=== PATIENT | female | born 1995 ===

== ENCOUNTER 2016-11-02 17:01 | Emergency (ER) | payer OTHER ==
[2016-11-02 17:16] VITALS: BP 116/61
[2016-11-02 21:36] LABS: EBV Response YES
[2016-11-02 21:54] LABS: ALT 12 U/L (7-52); AST 19 U/L (13-39); Albumin 3.9 g/dL (3.2-5.2); Alkaline Phosphatase 43 U/L (34-104); Anion Gap 5 mmol/L (2-11); BUN/Creatinine Ratio 12.7 (8-20); Blood Urea Nitrogen 8 mg/dL (6-24); C Reactive Protein 12.67 mg/L (< 5.00); CO2 Carbon Dioxide 25 mmol/L (22-32); Calcium 8.2 mg/dL (8.6-10.3); Chloride 107 mmol/L (101-111); EGFR African American 150.6 (>60); EGFR Non-African American 117.1 (>60); Glucose 116 mg/dL (70-100); Potassium 3.5 mmol/L (3.5-5.0); Sodium 137 mmol/L (133-145); Total Protein 6.9 g/dL (6.4-8.9)
[2016-11-02 22:22] LABS: Mono Internal Control QC Line Present
[2016-11-02 22:25] LABS: Hematocrit 40 % (35-47); Hemoglobin 14.1 g/dl (12.0-16.0); Mean Corpuscular HGB Conc 35 g/dl (31-36); Mean Corpuscular Hemoglobin 32 pg (27-31); Mean Corpuscular Volume 91 fL (80-97); Mean Platelet Volume 9 um3 (7.4-10.4); Red Blood Count 4.45 10^6/ul (4.0-5.4); Red Cell Distribution Width 12 % (10.5-15); White Blood Count 3.6 10^3/ul (3.5-10.8)
--- NOTE | 2016-11-02 22:50 | ED ---
Guevara Arguello Alfonso, scribed for Kylah Bradley MD on 11/02/16 at 1945 . Skin Complaint - HPI Summary HPI Summary: This patient is a 21 year old F presenting to [facility] accompanied by a female friend with a chief complaint of a diffuse erythematous rash since 2 days ago. The patient rates the pain 4/10 in severity. Symptoms aggravated by nothing. Symptoms alleviated by nothing. Patient reports joint pain (knee, feet, and hands), weakness, and diarrhea (just two days ago). Patient denies vomiting, fever, chills, and sore throat. She reports recently traveling to [place] and returning 3 days ago. She reports another student she traveled to [place] with has similar symptoms. She lives with roommates and she is a college student. She denies acknowledged tick exposure. LMP October 22. - History of Current Complaint Chief Complaint: EDRashSkinAbscess Time Seen by Provider: 11/02/16 19:34 Stated Complaint: RASH/RED EYES/SORE JOINTS Hx Obtained From: Patient Onset/Duration: Started Days Ago - 2, Still Present Timing: Constant Current Severity: Moderate Pain Intensity: 4 Pain Scale Used: 0-10 Numeric Skin Location: Diffuse Character: Redness Aggravating Symptom(s): Nothing Alleviating Symptom(s): Nothing Associated Signs & Symptoms: Weakness, Rash PMH/Surg Hx/FS Hx/Imm Hx Opthamlomology History: Denies: Hx Legally Blind EENT History: Denies: Hx Deafness Infectious Disease History: No Infectious Disease History: Reports: Traveled Outside the [place] in Last 30 Days - Family History Known Family History: Positive: Unknown - Adopte - Social History Occupation: Student Lives: Dormitory/Roommates Alcohol Use: None Substance Use Type: Reports: None Smoking Status (MU): Never Smoked Tobacco Review of Systems Negative: Fever, Chills Negative: Sore Throat Positive: Diarrhea. Negative: Vomiting Positive: Arthralgia Positive: Rash Positive: Weakness All Other Systems Reviewed And Are Negative: Yes Physical Exam - Summary Physical Exam Summary: General: Well appearing, no pain distress Skin: Warm, Skin Color Reflects Adequate Perfusion, Dry. Diffuse maculopapular rash. Eyes: EOMI, GONZALO ENT: Pharynx normal, TMs normal Neck: Supple, nontender Respiratory: CTA, breath sounds present, no rhonchi, no wheezes, no rales Cardiovascular: RRR, no murmur, no rub, no gallop Abdomen: Soft, nontender, Non-distended, no guarding, no rebound Bowel: Present Musculoskeletal: NGOC, No edema Neuro: Sensory/motor intact, A&Ox3, CN intact 2-12 Psych: Affect/mood appropriate Triage Information Reviewed: Yes Vital Signs On Initial Exam: Initial Vitals Temp Pulse Resp BP Pulse Ox 98.2 F 80 28 116/61 100 11/02/16 17:11 11/02/16 17:11 11/02/16 17:11 11/02/16 17:11 11/02/16 17:11 Vital Signs Reviewed: Yes - Bledsoe Coma Scale Coma Scale Total: 15 Diagnostics - Vital Signs Vital Signs Temp Pulse Resp BP Pulse Ox 11/02/16 17:11 98.2 F 80 28 116/61 100 - Laboratory Lab Results: Lab Results 11/02/16 11/02/16 11/02/16 Range/Units 20:39 21:20 21:20 WBC Cancelled RBC Cancelled Hgb Cancelled Hct Cancelled MCV Cancelled MCH Cancelled MCHC Cancelled RDW Cancelled Plt Count Cancelled MPV Cancelled Neut % (Auto) Cancelled Lymph % (Auto) Cancelled Starr % (Auto) Cancelled Eos % (Auto) Cancelled Baso % (Auto) Cancelled Absolute Neuts (auto) Cancelled Absolute Lymphs (auto) Cancelled Absolute Monos (auto) Cancelled Absolute Eos (auto) Cancelled Absolute Basos (auto) Cancelled Absolute Nucleated RBC Cancelled CBC Comment Cancelled Nucleated RBC % Cancelled Diff Slide Review Cancelled ESR Cancelled Sodium 137 (133-145) mmol/L Potassium 3.5 (3.5-5.0) mmol/L Chloride 107 (101-111) mmol/L Carbon Dioxide 25 (22-32) mmol/L Anion Gap 5 (2-11) mmol/L BUN 8 (6-24) mg/dL Creatinine 0.63 (0.51-0.95) mg/dL Est GFR ( Amer) 150.6 (>60) Est GFR (Non-Af Amer) 117.1 (>60) BUN/Creatinine Ratio 12.7 (8-20) Glucose 116 H (70-100) mg/dL Calcium 8.2 L (8.6-10.3) mg/dL Total Bilirubin 0.40 (0.2-1.0) mg/dL AST 19 (13-39) U/L ALT 12 (7-52) U/L Alkaline Phosphatase 43 (34-104) U/L C-Reactive Protein 12.67 H (< 5.00) mg/L Total Protein 6.9 (6.4-8.9) g/dL Albumin 3.9 (3.2-5.2) g/dL Globulin 3.0 (2-4) g/dL Albumin/Globulin Ratio 1.3 (1-3) Beta HCG, Quant < 0.60 mIU/mL Monoscreen Negative (Negative) Group A Strep Rapid Negative (Negative) 11/02/16 Range/Units 22:10 WBC 3.6 RBC 4.45 Hgb 14.1 Hct 40 MCV 91 MCH 32 H MCHC 35 RDW 12 Plt Count 130 L MPV 9 Neut % (Auto) 37.4 L Lymph % (Auto) 46.5 Starr % (Auto) 14.7 H Eos % (Auto) 0.7 Baso % (Auto) 0.7 Absolute Neuts (auto) 1.4 L Absolute Lymphs (auto) 1.7 Absolute Monos (auto) 0.5 Absolute Eos (auto) 0 Absolute Basos (auto) 0 Absolute Nucleated RBC 0.01 CBC Comment Nucleated RBC % 0.1 Diff Slide Review ESR Pending Sodium (133-145) mmol/L Potassium (3.5-5.0) mmol/L Chloride (101-111) mmol/L Carbon Dioxide (22-32) mmol/L Anion Gap (2-11) mmol/L BUN (6-24) mg/dL Creatinine (0.51-0.95) mg/dL Est GFR ( Amer) (>60) Est GFR (Non-Af Amer) (>60) BUN/Creatinine Ratio (8-20) Glucose (70-100) mg/dL Calcium (8.6-10.3) mg/dL Total Bilirubin (0.2-1.0) mg/dL AST (13-39) U/L ALT (7-52) U/L Alkaline Phosphatase (34-104) U/L C-Reactive Protein (< 5.00) mg/L Total Protein (6.4-8.9) g/dL Albumin (3.2-5.2) g/dL Globulin (2-4) g/dL Albumin/Globulin Ratio (1-3) Beta HCG, Quant mIU/mL Monoscreen (Negative) Group A Strep Rapid (Negative) Result Diagrams: 11/02/16 22:10 11/02/16 21:20 Lab Statement: Any lab studies that have been ordered have been reviewed, and results considered in the medical decision making process. Course/Dx - Course Course Of Treatment: pt with exposure to zika/chikungunya by a trip to [place] with maculopapular rash and joint pain, case discussed with Cayla Quan of the [facility] and labs to detect either of these viruses were ordered, of note pt is not and did not have unprotected sex with any male in [place] - Diagnoses Provider Diagnoses: Exposure to Zika virus - Physician Notifications Instructed by Provider To: Other - Consulted Cayla Quan at the [facility] at 2100 regarding viral screening. She recommended Zika and Chikungunya screening. Discharge - Discharge Plan Condition: Stable Disposition: HOME The documentation as recorded by the Guevara ann Alfonso accurately reflects the service I personally performed and the decisions made by me, Kylah Bradley MD.
[2016-11-02 23:22] LABS: Erythrocyte Sed Rate 14 mm/Hr (0-14)
[2016-11-04 11:50] LABS: EBV Capsid Ag IgG Ab Positive (Negative); EBV Capsid Ag IgM Ab Negative (Negative)
== END 2016-11-02 22:53 | disposition home or self-care (01) ==
LOC: ED 17:01
DX: Z20.828 Contact with and (suspected) exposure to other viral communicable diseases (principal); R21 Rash and other nonspecific skin eruption; R53.1 Weakness; H57.8 Other specified disorders of eye and adnexa; M25.569 Pain in unspecified knee; M25.572 Pain in left ankle and joints of left foot; M25.571 Pain in right ankle and joints of right foot; M25.542 Pain in joints of left hand; M25.541 Pain in joints of right hand; Z32.02 Encounter for pregnancy test, result negative
CPT/HCPCS: 36415; 80053; 84702; 85025; 85652; 86140; 86308; 86664; 86665; 87651; 87798; 99282